=== PATIENT | male | born 2000 | race Caucasian/White ===

== ENCOUNTER 2023-12-18 06:38 | Emergency (ER) | payer OTHER ==
[~2023-12-18] VITALS: Ht 175.3 cm; Wt 81.6 kg
[2023-12-18 07:00] VITALS: BP 140/90; PULSE 112; RESP 19; TEMP 98.6; O2SAT 98
[2023-12-18] MEDS ORDERED: NACL 0.9% 1,000 ML IV ONE (07:45)
[2023-12-18] MEDS ORDERED: KETOROLAC 30 MG/ML VIAL IVP ONE (07:45)
[2023-12-18 08:14] VITALS: TEMP 98.6
[2023-12-18 09:07] LABS: FLU A ANTIGEN negative (NEGATIVE); FLU B ANTIGEN negative (NEGATIVE)
[2023-12-18] MEDS ORDERED: IBUP-2213 PO (09:42)
[2023-12-18] MEDS ORDERED: PRED20TA5 PO (09:42)
[2023-12-18 10:00] VITALS: BP 121/71; PULSE 96; RESP 21; O2SAT 98
== END 2023-12-18 10:00 | disposition home or self-care (01) ==
LOC: MED 06:38
DX: R07.9 Chest pain, unspecified (principal); J06.9 Acute upper respiratory infection, unspecified; Z20.822 Contact with and (suspected) exposure to COVID-19
CPT/HCPCS: 87426; 87804; 93005; 96361; 96374; 99284; J1885; J7030